=== PATIENT | female | born 1985 | race Caucasian/White ===

== ENCOUNTER 2020-04-23 05:32 | Inpatient (IN) ==
[2020-04-23] MEDS ORDERED: CITRIC ACID/SODIUM CITRATE 30 ML UDCUP PO ONE (06:02)
[2020-04-23] MEDS ORDERED: FAMOTIDINE 20 MG/2 ML VIAL IV ONE (06:02)
[2020-04-23] MEDS ORDERED: ceFAZolin 3,000 MG in SYRINGE 1 EACH IV ONE (06:02)
[2020-04-23] MEDS ORDERED: LACTATED RINGERS 1,000 ML IV ONE (06:08)
[2020-04-23 06:56] LABS: Basophils % 0.2 % (0.0-0.8); Eosinophils # 0.1 10*3/uL (0.0-0.87); Eosinophils % 1.4 % (0.00-10.9); Hematocrit 35.4 VOL% (35.7-47.0); Hemoglobin 10.9 GM/DL (12.0-16.0); Immature Granulocytes % 0.4 %; Immature Granulocytes Absolute 0.04 #; Lymphocytes # 2.2 10*3/uL (1.4-4.0); Lymphocytes % 22.3 % (21.3-54.2); Mean Corpuscular HGB Conc 30.8 GM/DL (32-36); Mean Corpuscular Volume 82.7 FL (87-102); Mean Platelet Volume 10.5 FL (9.6-12.0); Monocytes % 5.1 % (1.7-12.7); Neutrophils % 70.6 % (38.7-73.9); Platelet Count 186 T/CUMM (130-400); Red Blood Count 4.28 MC/CUMM (3.8-5.5); Red Cell Distribution Width 15.8 % (9.3-17.3); White Blood Count 9.7 T/CUMM (4-12)
[2020-04-23 07:14] LABS: Bilirubin,Direct 0.11 MG/DL (0.0-0.20); Uric Acid 6.7 MG/DL (2.6-6.0)
[2020-04-23 07:20] LABS: Albumin 2.2 G/DL (3.4-5.0); Bilirubin,Total 0.5 MG/DL (0.2-1.0); Calcium 8.7 MG/DL (8.5-10.1); Osmolality,Calculated 275.4 MOS/KG (273-304); Potassium 3.9 MMOL/L (3.5-5.1); Total Protein 6.1 G/DL (6.4-8.3)
[2020-04-23 07:38] LABS: PT Patient Result 10.4 SECS (9.8-11.9); Partial Thromboplastin Time 27.6 SECS (23.9-33.8)
[2020-04-23] MEDS ORDERED: INFLUENZA VIRUS VACCINE 0.5 ML SYRINGE IM ONE (07:47)
[2020-04-23] MEDS ORDERED: ONDANSETRON 4 MG/2 ML VIAL ONE ×2 (07:51→10:03)
[2020-04-23] MEDS ORDERED: PHENYLEPHRINE 1 MG/10 ML SYRINGE IV ONE ×2 (07:51→09:58)
[2020-04-23] MEDS ORDERED: propofoL 200 MG/20 ML VIAL IV ONE (07:51)
[2020-04-23] MEDS ORDERED: BUPIVACAINE SPINAL 0.75% 2 ML AMP SPINAL ONE (07:51)
[2020-04-23] MEDS ORDERED: MORPHINE 10 MG/10 ML VIAL ONE (07:52)
[2020-04-23] MEDS ORDERED: TRANEXAMIC ACID 1,000 MG/10 ML VIAL ONE (08:04)
[2020-04-23] MEDS ORDERED: miSOPROStoL 200 MCG TABLET ONE (08:04)
[2020-04-23] MEDS ORDERED: CARBOPROST TROMETHAMINE 250 MCG/ML AMP IM ONE (08:05)
[2020-04-23] MEDS ORDERED: OXYTOCIN/LR 20 UNIT/1,000 ML BAG IV ONE ×2 (08:05→11:04)
[2020-04-23] MEDS ORDERED: METHYLERGONOVINE 0.2 MG/1 ML AMP ONE (08:05)
[2020-04-23] MEDS ORDERED: ROPIVACAINE 0.5% 30 ML VIAL ONE (08:35)
[2020-04-23] MEDS ORDERED: SODIUM CHLORIDE 0.9% 100 ML IV ONE (08:51)
[2020-04-23] MEDS: LACTATED RINGERS 1,000 ML IV SCH ×2 (08:56→20:19)
[2020-04-23 10:20] LABS: Bilirubin,Urine Negative (Negative); Blood, Urine Negative (Negative); Glucose,Urine (UA) Negative (Negative); Ketones,Urine 5 mg/dL (Negative); Mucus,Urine Occasional /LPF (Occasional); Nitrite,Urine Negative (Negative); Protein,Urine Negative; RBC,Urine 2 /HPF (0-4); Squamous Epithelial Cell,Urine Occasional /HPF (0-10); Urine Appearance CLEAR (Clear); Urine Color Yellow (Yellow); Urine Specific Gravity 1.011 (1.001-1.035); Urine Urobilinogen < 2.0 EU/DL (0.2-1.0); WBC,Urine <1 /HPF (0-6)
[2020-04-23 10:21] LABS: Cord Arterial Blood HCO3 23.7 MMOL/L
[2020-04-23 10:24] LABS: Cord Venous Blood HCO3 24.4 MMOL/L; Cord Venous Blood PCO2 53.6 MMHG
[2020-04-23] MEDS ORDERED: ACETAMINOPHEN 325 MG TABLET PO PRN (11:04)
[2020-04-23] MEDS ORDERED: ONDANSETRON 4 MG/2 ML VIAL IV PRN (11:04)
[2020-04-23] MEDS ORDERED: WITCH HAZEL PADS 100/JAR TOP PRN (11:04)
[2020-04-23] MEDS ORDERED: BENZOCAINE 20%/MENTHOL 0.5% SPRAY 56 GM CAN TOP PRN (11:04)
[2020-04-23] MEDS ORDERED: LANOLIN 50% CREAM 0.3 OZ TUBE TOP PRN (11:04)
[2020-04-23] MEDS ORDERED: DIPH/TET/ACEL PERT BOOSTER VACCINE 0.5 ML VIAL IM ONE (11:04)
[2020-04-23] MEDS ORDERED: HYDROCORTISONE 2.5% RECTAL CREAM 30 GM TUBE TOP PRN (11:04)
[2020-04-23] MEDS ORDERED: RHO(D) IMMUNE GLOBULIN 300 MCG SYRINGE IM ONE (11:04)
[2020-04-23] MEDS ORDERED: MEASLES/MUMPS/RUBELLA VACCINE 0.5 ML VIAL SUBCUT ONE (11:04)
[2020-04-23] MEDS ORDERED: BISACODYL 10 MG SUPP RECTAL PRN (11:04)
[2020-04-23] MEDS ORDERED: oxyCODONE/ACETAMINOPHEN 5-325 MG TABLET PO PRN ×2 (11:04)
[2020-04-23] MEDS ORDERED: ACETAMINOPHEN 500 MG TABLET PO PRN (11:13)
[2020-04-23] MEDS: ceFAZolin 2,000 MG in PREMIX 1 EACH IV SCH (17:53)
[2020-04-23] MEDS: DOCUSATE SODIUM 100 MG CAPSULE PO SCH (21:23)
[2020-04-24] MEDS: KETOROLAC 30 MG/1 ML VIAL IV SCH ×2 (00:40→05:51)
[2020-04-24] MEDS: ceFAZolin 2,000 MG in PREMIX 1 EACH IV SCH (01:58)
[2020-04-24 06:23] LABS: Basophils % 0.1 % (0.0-0.8); Hematocrit 29.6 VOL% (35.7-47.0); Hemoglobin 9.1 GM/DL (12.0-16.0); Immature Granulocytes % 0.6 %; Immature Granulocytes Absolute 0.11 #; Lymphocytes # 1.9 10*3/uL (1.4-4.0); Lymphocytes % 10.3 % (21.3-54.2); Mean Corpuscular HGB Conc 30.7 GM/DL (32-36); Mean Platelet Volume 11.2 FL (9.6-12.0); Monocytes % 5.1 % (1.7-12.7); Neutrophils % 83.9 % (38.7-73.9); Platelet Count 208 T/CUMM (130-400); Red Blood Count 3.61 MC/CUMM (3.8-5.5); Red Cell Distribution Width 15.6 % (9.3-17.3); White Blood Count 18.3 T/CUMM (4-12)
[2020-04-24] MEDS: DOCUSATE SODIUM 100 MG CAPSULE PO SCH ×2 (08:16→21:05)
[2020-04-24] MEDS: PANTOPRAZOLE 40 MG TABLET PO SCH (10:12)
[2020-04-24] MEDS: ESCITALOPRAM 10 MG TABLET PO SCH (10:12)
[2020-04-24] MEDS ORDERED: KETOROLAC 30 MG/1 ML VIAL IV PRN (12:51)
[2020-04-24] MEDS ORDERED: METHYLERGONOVINE 0.2 MG TABLET PO ONE (14:00)
[2020-04-24] MEDS: IRON (CARBONYL)/VIT C/B12/FA TABLET PO SCH (14:31)
[2020-04-24] MEDS ORDERED: SIMETHICONE CHEW 80 MG TABLET PO PRN (19:51)
[2020-04-24] MEDS: IBUPROFEN 800 MG TABLET PO PRN (19:58)
[2020-04-24] MEDS ORDERED: MAGNESIUM HYDROXIDE SUSP 30 ML UDCUP PO PRN (22:32)
[2020-04-25 07:24] VITALS: BP 133/84
[2020-04-25] MEDS: IBUPROFEN 800 MG TABLET PO PRN (07:34)
[2020-04-25] MEDS: IRON (CARBONYL)/VIT C/B12/FA TABLET PO SCH (08:34)
[2020-04-25] MEDS: PANTOPRAZOLE 40 MG TABLET PO SCH (08:34)
[2020-04-25] MEDS: DOCUSATE SODIUM 100 MG CAPSULE PO SCH (08:34)
[2020-04-25] MEDS: ESCITALOPRAM 10 MG TABLET PO SCH (08:35)
[2020-04-25] MEDS ORDERED: INFLUENZA VIRUS VACCINE 0.5 ML SYRINGE IM ONE (09:22)
== END 2020-04-25 12:50 | disposition home or self-care (01) | DRG 788 ==
LOC: N.OB 05:32 → N.LD 10:08 → N.OB 15:08
PROVIDERS: ADMIT Specialist; ATTEND Specialist
PROC: LDCSECT (ICD-10-PCS; 2020-04-23 09:00)